=== PATIENT | male | born 1960 | race Caucasian/White ===

== ENCOUNTER 2024-05-16 13:18 | Inpatient (IN) | payer MEDICARE ==
[2024-05-16 13:40] LABS: Glucose,Whole Blood 215 mg/dL (70-110)
--- NOTE | 2024-05-16 13:56 | CT ---
EXAMINATION TYPE: CODE STROKE: CT brain wo contr CT DLP: 1158.6 mGycm, Automated exposure control for dose reduction was used. DATE OF EXAM: 05/16/2024 1:50 PM COMPARISON: None. CLINICAL INDICATION:Male, 63 years old with history of Neuro deficit, acute, stroke suspected, Code s troke. Left side weakness and facial droop. TECHNIQUE: Brain: Multiple axial CT images of the brain were obtained without IV contrast. . Coronal and sagitta l reformats reviewed. FINDINGS: Brain: Extra-axial spaces: No abnormal extra-axial fluid collections. Ventricular system: Within normal limits Cerebral parenchyma: No acute intraparenchymal hemorrhage or mass effect. The amezcua-white junction is well differentiated. Cerebellum: CSF fluid attenuating space within the posterior cranial fossa and midline likely represe nting a denisse cisterna magna versus arachnoid cyst. Mass effect: No evidence of midline shift. Intracranial vasculature: Atherosclerotic calcifications of the intracranial vessels. Soft tissues: Normal. Calvarium/osseous structures: No depressed skull fracture. Paranasal sinuses and mastoid air cells: Clear Visualized orbits: Orbital contents are intact. IMPRESSION: No acute intracranial process. [facility], , 05/16/2024 1:54 PM
[2024-05-16 14:11] LABS: Basophils # (A) 0.1 k/uL (0-0.2); Basophils % (A) 1 %; Eosinophils # (A) 0.2 k/uL (0-0.7); Eosinophils % (A) 1 %; HCT 46.3 % (39.0-53.0); HGB 15.5 gm/dL (13.0-17.5); Lymphocytes # (A) 2.9 k/uL (1.0-4.8); Lymphocytes % (A) 25 %; MCH 29.2 pg (25.0-35.0); MCHC 33.5 g/dL (31.0-37.0); MCV 87.3 fL (80.0-100.0); Mean Platelet Volume 7.4; Monocytes # (A) 0.6 k/uL (0-1.0); Monocytes % (A) 5 %; Neutrophils # (A) 7.8 k/uL (1.3-7.7); Neutrophils % (A) 67 %; Platelet Count 291 k/uL (150-450); RDW 13.1 % (11.5-15.5); WBC 11.7 k/uL (3.8-10.6)
--- NOTE | 2024-05-16 14:15 | XR ---
EXAMINATION TYPE: XR chest 2V DATE OF EXAM: 05/16/2024 2:09 PM COMPARISON: None. CLINICAL INDICATION: Male, 63 years old with history of altered mental status, TECHNIQUE: Frontal and lateral views of the chest are obtained. FINDINGS: There is no focal air space opacity, pleural effusion, or pneumothorax seen. The cardiac silhouette size is mildly enlarged. The osseous structures are intact. IMPRESSION: Mild cardiomegaly without acute pulmonary process. [facility], , 05/16/2024 2:12 PM
--- NOTE | 2024-05-16 14:20 | CT ---
EXAMINATION TYPE: CT angio head neck CT DLP: 679.9 mGycm, Automated exposure control for dose reduction was used. DATE OF EXAM: 05/16/2024 2:04 PM COMPARISON: CT brain of the same date. CLINICAL INDICATION:Male, 63 years old with history of Neuro deficit, acute, stroke suspected; PHH, C ode stroke. Left side weakness and facial droop. TECHNIQUE: Axially acquired helical CT angiogram of the head and neck was obtained with contrast util izing 65 cc of Isovue-370 administered intravenously. Axial images are supplemented with 3D reconstru ctions which were post-processed at an independent workstation. NASCET criteria used. FINDINGS: CTA HEAD: No evidence of acute intracranial hemorrhage, mass effect, or midline shift. The ventricles, sulci, a nd cisterns are unremarkable. The visualized portions of the internal carotid arteries, middle cerebral arteries, anterior cerebral arteries, and posterior cerebral arteries are patent. The bilateral A2 segments of the anterior cere bral arteries originate from the left A1 segment which is an anatomic variant. The basilar and vertebral arteries are patent. CTA NECK: Right Carotid System: The common carotid artery and external carotid artery are patent. The carotid bifurcation demonstrate s no evidence of hemodynamically significant stenosis. There is approximately 50% stenosis involving the proximal portion of the right internal carotid artery secondary to calcified and noncalcified latoya que. The remaining portions of the internal carotid artery demonstrate normal size without significan t narrowing. Left Carotid System: The common carotid artery and external carotid artery are patent. Minimal calcification identified wi thin the proximal left internal carotid artery. The carotid bifurcation demonstrates no evidence of h emodynamically significant stenosis. The remaining portions of the internal carotid artery demonstrat e normal size without significant narrowing. Vertebral arteries are patent without evidence hemodynamically significant stenosis. Minimal calcific ation of the V4 segment of the bilateral carotid arteries. There is a three-vessel aortic arch. The origins of the great vessels are patent. No evidence of hemo dynamically significant stenosis. Right upper lobe 3.6 mm pulmonary nodule (series 401, image 23). Mild multilevel degenerative changes of the cervical spine. IMPRESSION: 1. No evidence of dissection of the cervical internal carotid arteries or vertebral arteries. Approxi mately 50% stenosis involving the proximal right internal carotid artery secondary to calcified and n oncalcified plaque. No hemodynamically significant stenosis involving the left internal carotid arter y. 2. No evidence of high-grade stenosis or intracranial aneurysm. 3. Anatomic variant with the bilateral A2 segments of the anterior cerebral arteries originating from the A1 segment of the left anterior cerebral artery. 4. Right upper lobe 3.6 millimeter pulmonary nodule. In a low-risk patient, no follow-up is recommend ed. In a high-risk patient, consider optional CT chest in 12 months. [facility], , 05/16/2024 2:18 PM
[2024-05-16 14:23] LABS: ALT 30 U/L (4-49); AST 27 U/L (17-59); African American GFR (CKD) 85 (>60 ml/min/1.73 sqM); Albumin 4.5 g/dL (3.5-5.0); Alkaline Phosphatase 109 U/L (38-126); Anion Gap 11 mmol/L; Blood Urea Nitrogen 17 mg/dL (9-20); Calcium 10.3 mg/dL (8.4-10.2); Carbon Dioxide 29 mmol/L (22-30); Chloride 100 mmol/L (98-107); Creatine Kinase 154 U/L (55-170); Glucose 220 mg/dL (74-99); Non-African American GFR(CKD) 74 (>60 ml/min/1.73 sqM); Potassium 4.9 mmol/L (3.5-5.1); Sodium 140 mmol/L (137-145); Total Bilirubin 0.5 mg/dL (0.2-1.3)
[2024-05-16 14:42] LABS: INR 0.9 (<1.2); Partial Thromboplastin Time 24.2 sec (22.0-30.0); Prothrombin Time 10.3 sec (10.0-12.5)
[2024-05-16] MEDS: ATORVASTATIN 40 MG TAB PO STA (14:54)
[2024-05-16] MEDS: ASPIRIN 325 MG TAB PO STA (14:54)
--- NOTE | 2024-05-16 15:01 | ED ---
General Adult HPI - General Chief complaint: Neuro Symptoms/Deficit Stated complaint: Left side numbness/Facial drooping Time Seen by Provider: 05/16/24 13:30 Source: patient, family Mode of arrival: ambulatory Limitations: no limitations - History of Present Illness Initial comments: 63-year-old male with past medical history of diabetes, hypertension, hyperlipidemia who presents emergency department with left upper extremity numbness and left-sided facial droop. Patient states that 30 minutes prior to hospital arrival he had sudden onset of drooping to the left side of his face. He also had some tingling in his left arm and some difficulties with his speech. He immediately came into the hospital. He denies any weakness in his arm. No difficulties with strength in his leg. Patient denies history of previous symptoms in the past. He does not take any blood thinners. He denies any head injuries. No visual changes. No other alleviating, precipitating or modifying factors - Related Data Allergies Allergy/AdvReac Type Severity Reaction Status Date / Time Influenza Virus Vaccines Allergy Unknown Verified 05/16/24 13:33 ondansetron [From Zofran] Allergy Unknown Verified 05/16/24 13:33 Ebljffg-SKJ-UrH Reductase Allergy Unknown Verified 05/16/24 13:33 Inhibitor Review of Systems ROS Statement: Those systems with pertinent positive or pertinent negative responses have been documented in the HPI. ROS Other: All systems not noted in ROS Statement are negative. Past Medical History Past Medical History: Diabetes Mellitus, Hyperlipidemia, Hypertension Additional Past Surgical History / Comment(s): Right tibia, Past Psychological History: No Psychological Hx Reported Smoking Status: Never smoker Past Alcohol Use History: None Reported Past Drug Use History: None Reported General Exam Limitations: no limitations Course Vital Signs 05/16/24 05/16/24 05/16/24 13:23 13:52 14:55 Temperature 98.5 F Pulse Rate 106 H 108 H 101 H Respiratory 18 20 20 Rate Blood Pressure 205/99 224/114 186/93 O2 Sat by Pulse 98 98 95 Oximetry Medical Decision Making - Medical Decision Making Was pt. sent in by a medical professional or institution (, PA, TRUCK RENTAL CLERK, urgent care, hospital, or intermediate...) When possible be specific @ -[No] Did you speak to anyone other than the patient for history (EMS, parent, family, police, friend...)? What history was obtained from this source @ -[No] Did you review nursing and triage notes (agree or disagree)? Why? @ -[I reviewed and agree with nursing and triage notes] Were old charts reviewed (outside hosp., previous admission, EMS record, old EKG, old radiological studies, urgent care reports/EKG's, intermediate records)? Report findings @ -[No old charts were reviewed] Differential Diagnosis (chest pain, altered mental status, abdominal pain women, abdominal pain men, vaginal bleeding, weakness, fever, dyspnea, syncope, headache, dizziness, GI bleed, back pain, seizure, CVA, palpatations, mental health, musculoskeletal)? @ -[not applicable] EKG interpreted by me (3pts min.). @ -Yes and demonstrates sinus tachycardia with a rate of 106. WA interval 194. QRS 94. QTc of 388. No acute ST segment elevations or depressions X-rays interpreted by me (1pt min.). @ -[None done] CT interpreted by me (1pt min.). @ -[None done] U/S interpreted by me (1pt. min.). @ -[None done] What testing was considered but not performed or refused? (CT, X-rays, U/S, labs)? Why? @ -[None] What meds were considered but not given or refused? Why? @ -[None] Did you discuss the management of the patient with other professionals (professionals i.e. , PA, TRUCK RENTAL CLERK, lab, RT, psych nurse, social worker clinical, returned item clerk, teacher, facilities officer, correctional case manager)? Give summary @ -[No] Was smoking cessation discussed for >3mins.? @ -[No] Was critical care preformed (if so, how long)? @ -[No] Were there social determinants of health that impacted care today? How? (Homelessness, low income, unemployed, alcoholism, drug addiction, transportation, low edu. Level, literacy, decrease access to med. care, senior care, rehab)? @ -[No] Was there de-escalation of care discussed even if they declined (Discuss DNR or withdrawal of care, Hospice)? DNR status @ -[No] What co-morbidities impacted this encounter? (DM, HTN, Smoking, COPD, CAD, Cancer, CVA, ARF, Chemo, Hep., AIDS, mental health diagnosis, sleep apnea, morbid obesity)? @ -[None] Was patient admitted / discharged? Hospital course, mention meds given and route, prescriptions, significant lab abnormalities, going to OR and other pertinent info. @ -[hospital course] Undiagnosed new problem with uncertain prognosis? @ -[No] Drug Therapy requiring intensive monitoring for toxicity (Heparin, Nitro, Insulin, Cardizem)? @ -[No] Were any procedures done? @ -[No] Diagnosis/symptom? @ -[default] Acute, or Chronic, or Acute on Chronic? @ -[default] Uncomplicated (without systemic symptoms) or Complicated (systemic symptoms)? @ -[default] Side effects of treatment? @ -[No] Exacerbation, Progression, or Severe Exacerbation? @ -[No] Poses a threat to life or bodily function? How? (Chest pain, USA, IA, pneumonia, PE, COPD, DKA, ARF, appy, cholecystitis, CVA, Diverticulitis, Homicidal, Suicidal, threat to staff... and all critical care pts) @ -[No] - Lab Data Result diagrams: 05/16/24 13:42 05/16/24 13:42 Lab Results 05/16/24 05/16/24 05/16/24 Range/Units 13:39 13:42 13:42 WBC 11.7 H (3.8-10.6) k/uL RBC 5.30 (4.30-5.90) m/uL Hgb 15.5 (13.0-17.5) gm/dL Hct 46.3 (39.0-53.0) % MCV 87.3 (80.0-100.0) fL MCH 29.2 (25.0-35.0) pg MCHC 33.5 (31.0-37.0) g/dL RDW 13.1 (11.5-15.5) % Plt Count 291 (150-450) k/uL MPV 7.4 Neutrophils % 67 % Lymphocytes % 25 % Monocytes % 5 % Eosinophils % 1 % Basophils % 1 % Neutrophils # 7.8 H (1.3-7.7) k/uL Lymphocytes # 2.9 (1.0-4.8) k/uL Monocytes # 0.6 (0-1.0) k/uL Eosinophils # 0.2 (0-0.7) k/uL Basophils # 0.1 (0-0.2) k/uL PT 10.3 (10.0-12.5) sec INR 0.9 (<1.2) APTT 24.2 (22.0-30.0) sec Sodium (137-145) mmol/L Potassium (3.5-5.1) mmol/L Chloride (98-107) mmol/L Carbon Dioxide (22-30) mmol/L Anion Gap mmol/L BUN (9-20) mg/dL Creatinine (0.66-1.25) mg/dL Est GFR (CKD-EPI)AfAm (>60 ml/min/1.73 sqM) Est GFR (CKD-EPI)NonAf (>60 ml/min/1.73 sqM) Glucose (74-99) mg/dL POC Glucose (mg/dL) 215 H (70-110) mg/dL POC Glu Carpenter Supervisor [employer] Yarger Corby Calcium (8.4-10.2) mg/dL Total Bilirubin (0.2-1.3) mg/dL AST (17-59) U/L ALT (4-49) U/L Alkaline Phosphatase (38-126) U/L Creatine Kinase (55-170) U/L Troponin I (0.000-0.034) ng/mL Total Protein (6.3-8.2) g/dL Albumin (3.5-5.0) g/dL 05/16/24 05/16/24 Range/Units 13:42 13:42 WBC (3.8-10.6) k/uL RBC (4.30-5.90) m/uL Hgb (13.0-17.5) gm/dL Hct (39.0-53.0) % MCV (80.0-100.0) fL MCH (25.0-35.0) pg MCHC (31.0-37.0) g/dL RDW (11.5-15.5) % Plt Count (150-450) k/uL MPV Neutrophils % % Lymphocytes % % Monocytes % % Eosinophils % % Basophils % % Neutrophils # (1.3-7.7) k/uL Lymphocytes # (1.0-4.8) k/uL Monocytes # (0-1.0) k/uL Eosinophils # (0-0.7) k/uL Basophils # (0-0.2) k/uL PT (10.0-12.5) sec INR (<1.2) APTT (22.0-30.0) sec Sodium 140 (137-145) mmol/L Potassium 4.9 (3.5-5.1) mmol/L Chloride 100 (98-107) mmol/L Carbon Dioxide 29 (22-30) mmol/L Anion Gap 11 mmol/L BUN 17 (9-20) mg/dL Creatinine 1.06 (0.66-1.25) mg/dL Est GFR (CKD-EPI)AfAm 85 (>60 ml/min/1.73 sqM) Est GFR (CKD-EPI)NonAf 74 (>60 ml/min/1.73 sqM) Glucose 220 H (74-99) mg/dL POC Glucose (mg/dL) (70-110) mg/dL POC Glu Carpenter Supervisor [employer] Calcium 10.3 H (8.4-10.2) mg/dL Total Bilirubin 0.5 (0.2-1.3) mg/dL AST 27 (17-59) U/L ALT 30 (4-49) U/L Alkaline Phosphatase 109 (38-126) U/L Creatine Kinase 154 (55-170) U/L Troponin I <0.012 (0.000-0.034) ng/mL Total Protein 8.0 (6.3-8.2) g/dL Albumin 4.5 (3.5-5.0) g/dL Disposition Clinical Impression: Cerebrovascular accident (CVA), Left arm numbness, Facial droop Disposition: ADMITTED IP TO THIS [facility] Condition: Stable Is patient prescribed a controlled substance at d/c from ED?: No Referrals: Nonstaff,Physician [Primary Care Provider] - 1-2 days Time of Disposition: 15:01 Decision to Admit Reason: Admit from EC Decision Date: 05/16/24 Decision Time: 15:01
[2024-05-16] MEDS: TICAGRELOR 90 MG TAB PO SCH (21:19)
[2024-05-16 21:32] LABS: Glucose,Whole Blood 97 mg/dL (70-110)
[2024-05-17] MEDS ORDERED: DEXTROSE 50% SYRINGE 50 ML IVP PRN ×2 (05:34)
[2024-05-17] MEDS ORDERED: ONDANSETRON 4 MG/2 ML VIAL IVP PRN (05:35)
[2024-05-17 06:03] LABS: Glucose,Whole Blood 76 mg/dL (70-110)
[2024-05-17] MEDS: INSULIN ASPART (NovoLOG) 100 UNIT/ML VIAL SQ SCH (06:05)
[2024-05-17] MEDS: PANTOPRAZOLE 40 MG TABLET PO SCH (06:08)
[2024-05-17] MEDS: ATORVASTATIN 40 MG TAB PO SCH (09:32)
[2024-05-17] MEDS: LOSARTAN 50 MG TAB PO SCH (09:32)
--- NOTE | 2024-05-17 09:39 | P.GSCN ---
History of Present Illness Consult date: 05/17/24 Reason for Consult: carotid stenosis, CVA History of present illness: 63-year-old male with past medical history of diabetes, hypertension, hyperlipidemia who presented to the emergency department with left upper extremity numbness and left-sided facial droop which he states onset was sudden. He also had some difficulty with speech and difficulty moving his left arm. He was seen in the hospital and worked up for stroke and found to have stenosis of the right carotid artery on CTA. He states everything has since resolved except the proprioception of the left arm. He denies any fevers, chills, chest pain or shortness of breath. Review of Systems All systems: negative (what is mentioned in the PMH or HPI) Past Medical History Past Medical History: Diabetes Mellitus, Hyperlipidemia, Hypertension History of Any Multi-Drug Resistant Organisms: None Reported Past Surgical History: Tonsillectomy Additional Past Surgical History / Comment(s): Right tibfib srcew from fracture Past Psychological History: No Psychological Hx Reported Smoking Status: Never smoker Past Alcohol Use History: None Reported Past Drug Use History: None Reported Medications and Allergies Home Medications Medication Instructions Recorded Confirmed Type Losartan Potassium [Cozaar] 100 mg PO DAILY 05/16/24 05/16/24 History amLODIPine [Norvasc] 10 mg PO HS 05/16/24 05/16/24 History glipiZIDE [glipiZIDE ER] 10 mg PO DAILY 05/16/24 05/16/24 History metFORMIN HCL ER [Glucophage XR] 1,000 mg PO DAILY 05/16/24 05/16/24 History Allergies Allergy/AdvReac Type Severity Reaction Status Date / Time Influenza Virus Vaccines Allergy Unknown Verified 05/16/24 15:33 ondansetron [From Zofran] Allergy Unknown Verified 05/16/24 15:33 Ryaeysz-YUH-YiI Reductase Allergy Unknown Verified 05/16/24 15:33 Inhibitor Surgical - Exam Vital Signs Temp Pulse Resp BP Pulse Ox 98.5 F 106 H 18 205/99 98 05/16/24 13:23 05/16/24 13:23 05/16/24 13:23 05/16/24 13:23 05/16/24 13:23 Patient Seen Date: 05/17/24 Patient Seen Time: 09:00 - General well developed, well nourished, no distress - Eyes PERRL, normal ocular movement - ENT normal pinna, normal nares - Neck no masses - Respiratory normal expansion, normal respiratory effort - Cardiovascular Rhythm: regular - Abdomen Abdomen: soft, non tender - Neurologic left arm with pronator drift noted. - Psychiatric oriented to time, oriented to person, oriented to place, speech is normal normal strength bilaterally upper and lower extremities Palpable DP/PT/radial pulses bilaterally Results CTA neck- right carotid artery stenosis greater than 50% - Labs 05/16/24 13:42 05/16/24 13:42 Abnormal Lab Results - Last 24 Hours (Table) 05/16/24 05/16/24 05/16/24 Range/Units 13:39 13:42 13:42 WBC 11.7 H (3.8-10.6) k/uL Neutrophils # 7.8 H (1.3-7.7) k/uL Glucose 220 H (74-99) mg/dL POC Glucose (mg/dL) 215 H (70-110) mg/dL Calcium 10.3 H (8.4-10.2) mg/dL Diabetes panel 05/16/24 Range/Units 13:42 Sodium 140 (137-145) mmol/L Potassium 4.9 (3.5-5.1) mmol/L Chloride 100 (98-107) mmol/L Carbon Dioxide 29 (22-30) mmol/L BUN 17 (9-20) mg/dL Creatinine 1.06 (0.66-1.25) mg/dL Glucose 220 H (74-99) mg/dL Calcium 10.3 H (8.4-10.2) mg/dL AST 27 (17-59) U/L ALT 30 (4-49) U/L Alkaline Phosphatase 109 (38-126) U/L Total Protein 8.0 (6.3-8.2) g/dL Albumin 4.5 (3.5-5.0) g/dL Calcium panel 05/16/24 Range/Units 13:42 Calcium 10.3 H (8.4-10.2) mg/dL Albumin 4.5 (3.5-5.0) g/dL Pituitary panel 05/16/24 Range/Units 13:42 Sodium 140 (137-145) mmol/L Potassium 4.9 (3.5-5.1) mmol/L Chloride 100 (98-107) mmol/L Carbon Dioxide 29 (22-30) mmol/L BUN 17 (9-20) mg/dL Creatinine 1.06 (0.66-1.25) mg/dL Glucose 220 H (74-99) mg/dL Calcium 10.3 H (8.4-10.2) mg/dL Adrenal panel 05/16/24 Range/Units 13:42 Sodium 140 (137-145) mmol/L Potassium 4.9 (3.5-5.1) mmol/L Chloride 100 (98-107) mmol/L Carbon Dioxide 29 (22-30) mmol/L BUN 17 (9-20) mg/dL Creatinine 1.06 (0.66-1.25) mg/dL Glucose 220 H (74-99) mg/dL Calcium 10.3 H (8.4-10.2) mg/dL Total Bilirubin 0.5 (0.2-1.3) mg/dL AST 27 (17-59) U/L ALT 30 (4-49) U/L Alkaline Phosphatase 109 (38-126) U/L Total Protein 8.0 (6.3-8.2) g/dL Albumin 4.5 (3.5-5.0) g/dL Assessment and Plan Assessment: Acute CVA with left sided weakness Symptomatic right carotid artery stenosis Plan: Reviewed CTA independently which demonstrates calcific disease at the bifurcation and greater than 50% Will obtain carotid Doppler to evaluate plaque morphology Due to the symptoms and stenosis greater than 50% recommendation is for right carotid intervention within the next 2 weeks. Will await neurology recommendations as well. Thank you for the consultation
[2024-05-17] MEDS: ACETAMINOPHEN TAB 325 MG TAB PO PRN (09:43)
--- NOTE | 2024-05-17 10:59 | US ---
EXAMINATION TYPE: US carotid duplex BILAT DATE OF EXAM: 05/17/2024 COMPARISON: CTA: 05/16/24 CLINICAL INDICATION: Male, 63 years old with history of carotid stenosis; stenosis Additional History: .... TECHNIQUE: Grayscale, color Doppler and spectral Doppler evaluation of the bilateral carotid systems and vertebral arteries. Indirect Doppler criteria was utilized. FINDINGS: EXAM MEASUREMENTS: RIGHT: Peak Systolic Velocity (PSV) cm/sec ----- Right CCA: 76.0 ----- Right ICA: 116 ----- Right ECA: 122 ICA/CCA ratio: 1.5 RIGHT: End Diastole cm/sec ----- Right CCA: 16.6 ----- Right ICA: 37.5 ----- Right ECA: 12.1 LEFT: Peak Systolic Velocity (PSV) cm/sec ----- Left CCA: 103 ----- Left ICA: 87.1 ----- Left ECA: 156 ICA/CCA ratio: 0.85 LEFT: End Diastole cm/sec ----- Left CCA: 18.4 ----- Left ICA: 19.4 ----- Left ECA: 21.3 VERTEBRALS (direction of flow): Right Vertebral: Antegrade Left Vertebral: not seen Rhythm: Normal DISPOSAL MAN NOTES: plaque seen in bilateral bulbs. no elevated velocities Color Doppler imaging shows patency with blood flow throughout the carotid artery. Spectral waveforms are within normal limits. IMPRESSION: 1. Mild atheromatous plaque carotid bulbs without significant flow-limiting stenosis bilateral caroti d bifurcations. Criteria for Assigning % of Stenosis / Diameter reduction (Estimation based on the indirect measurements of the internal carotid artery velocities (ICA PSV). 1. Normal (no stenosis)=ICA PSV < 125 cm/s: ratio < 2.0: ICA EDV<40 cm/s. 2. Less than 50% stenosis=ICA PSV < 125 cm/s: ratio < 2.0: ICA EDV<40 cm/s. 3. 50 to 69% stenosis=ICA PSV of 125 to 230 cm/s: ration 2.0 ? 4.0: ICA EDV 40-100 cm/s. 4. Greater than 70% stenosis to near occlusion= ICA PSV > 230 cm/s: ratio > 4.0: ICA EDV > 100 cm/s. 5. Near occlusion= ICA PSV velocities may be low or undetectable: variable ratio and ICA EDV. 6. Total occlusion=unable to detect flow. [facility], , 05/17/2024 10:57 AM
[2024-05-17 12:05] LABS: Glucose,Whole Blood 126 mg/dL (70-110)
[2024-05-17 15:11] LABS: Chol/HDL Ratio 6.14 Ratio; HDL Cholesterol 45.1 mg/dL (40.00-60.00)
--- NOTE | 2024-05-17 15:11 | P.HPIM ---
History of Present Illness H&P Date: 05/17/24 Chief Complaint: Left arm numbness and facial droop Patient is a 63 year old male with past medical history pretension, diabetes melitis, hyperlipidemia presented to the ED with left-sided numbness and weakness. Patient's symptoms started yesterday around noon. He experienced slurring of speech along with left sided facial droop and left upper extremity numbness and weakness. The symptoms lasted for 2-3 minutes before resolution. Thirty minutes later he presented to the ER 30 for an evaluation. He reports feeling weakness in his left arm 3 times in the past couple of months but did not receive an evaluation at the time. Associated with that he endorses nausea. Currently he states that the weakness and numbness has significantly improved. He denies having a stroke or seizures in the past. He does have a family history of stroke. He denies ever having a heart attack or being diagnosed with atrial fibrillation in the past. Denies chest pain, shortness of breath. Additionally he mentions having blood in his bowel movements a year ago. He had a colonoscopy 10 years ago where they found some polyps and hemorrhoids and he is due to have another colonoscopy soon. Denies fever, chills, cough, palpitations, abdominal pain, nausea, vomiting, hematuria, dysuria, hematochezia, melena, headache, dizziness, lightheadedness. ED documentation reviewed. In the ED patient was treated with aspirin 325 mg, atorvastatin 80 mg, ticagrelor 90 mg. Vitals on admission T 98.5 F, VT 106 bpm, RR 18, BP 205/99, oxygen saturation 90% on room air EKG independently interpreted as sinus tachycardia, rate 106 bpm, QTc 388 ms Chest x-ray shows mild cardiomegaly without acute pulmonary process Brain CT shows no acute intracranial process CT angiography of head and neck shows 50% stenosis in the proximal right internal carotid artery secondary to calcified and noncalcified plaque, right upper lobe 3.6 mm pulmonary nodule Labs on admission show WBC 11.7, INR 0.9, sodium 140, creatinine 1.06, glucose 220, calcium 10.3, CK1 54 Troponin I <0.012 Carotid Doppler shows mild atheromatous plaque carotid bulbs without significant flow-limiting stenosis bilateral carotid bifurcations Review of systems: Pertinent positives and negatives as discussed in HPI, a complete review of sy stems was performed and all other systems are negative. Social history: Tobacco: Never smoker Alcohol: Denies use Recreational drugs: Denies use Travel: No recent travel history Sick contacts: None Physical examination: Vital signs reviewed General: nontoxic, no distress, appears at stated age Derm: warm, dry, intact Head: atraumatic, normocephalic, symmetric Eyes: EOMI, anicteric sclera Mouth: no lip lesion, mucus membranes moist Cardiovascular: S1 S2 reg, no murmur Lungs: CTA bilateral, no rhonchi, no rales, no accessory muscle use Abdominal: soft, non-tender to palpation Extremities: No cyanosis, clubbing, or pedal edema. Neuro: Alert, Oriented, Gross neurological examination did not reveal any focal deficits. Psych: well appearing, appropriate affect Assessment/Plan: Patient is a 63 year old male with past medical history pretension, diabetes melitis, hyperlipidemia presented to the ED with left-sided facial droop and left upper extremity numbness. He has been found to have 50% stenosis of the right internal carotid artery and is admitted for further neurology and vascular workup. Active: #. Acute CVA #. Symptomatic right carotid artery stenosis Brain CT shows no acute intracranial process CT angiography of head and neck shows 50% stenosis in the proximal right internal carotid artery secondary to calcified and noncalcified plaque, right upper lobe 3.6 mm pulmonary nodule Carotid Doppler shows mild atheromatous plaque carotid bulbs without significant flow-limiting stenosis bilateral carotid bifurcations continue atorvastatin 40 mg p.o. daily, ticagrelor 90 mg p.o. twice daily Obtain A1c and lipid panel Consult neurology Vascular surgery is following recommended right carotid intervention within the next 2 weeks due to the symptoms and stenosis greater than 50% #. Hypercalcemia Ca 10.3 Obtain PTH, vitamin D 25-hydroxy, vitamin D1 25 dihydroxy, ionized calcium Monitor BMP #. Reactive leukocytosis WBC 11.7 Monitor CBC Chronic: #. Hyperlipidemia #. Hypertension #. Dou-snlndoi-bruphtyfe diabetes mellitus Insulin sliding scale and ACHS blood glucose monitoring Continue amlodipine 10 mg p.o. at bedtime, losartan 100 mg p.o. daily F: None E: Replete as required N: Consistent carbohydrate diet DVT prophylaxis: Lovenox 40 mg SQ daily GI prophylaxis: Pantoprazole 40 mg PO daily The patient is admitted with an anticipated more than 2 midnight stay for evaluation of left sided numbness and weakness CODE STATUS: FULL CODE Discussed with: Patient Anticipated discharge place: Home Past Medical History Past Medical History: Diabetes Mellitus, Hyperlipidemia, Hypertension History of Any Multi-Drug Resistant Organisms: None Reported Past Surgical History: Tonsillectomy Additional Past Surgical History / Comment(s): Right tibfib srcew from fracture Past Psychological History: No Psychological Hx Reported Smoking Status: Never smoker Past Alcohol Use History: None Reported Past Drug Use History: None Reported Medications and Allergies Home Medications Medication Instructions Recorded Confirmed Type Losartan Potassium [Cozaar] 100 mg PO DAILY 05/16/24 05/16/24 History amLODIPine [Norvasc] 10 mg PO HS 05/16/24 05/16/24 History glipiZIDE [glipiZIDE ER] 10 mg PO DAILY 05/16/24 05/16/24 History metFORMIN HCL ER [Glucophage XR] 1,000 mg PO DAILY 05/16/24 05/16/24 History Allergies Allergy/AdvReac Type Severity Reaction Status Date / Time Influenza Virus Vaccines Allergy Unknown Verified 05/16/24 15:33 ondansetron [From Zofran] Allergy Unknown Verified 05/16/24 15:33 Qehtjel-LRX-CoS Reductase Allergy Unknown Verified 05/16/24 15:33 Inhibitor Physical Exam Vitals: Vital Signs Temp Pulse Pulse Resp BP BP Pulse Ox 05/17/24 04:00 74 16 162/76 98 05/17/24 00:00 81 16 176/85 98 05/16/24 21:00 98.1 F 97 16 170/87 97 05/16/24 20:01 90 16 166/85 98 05/16/24 18:42 85 20 154/77 97 05/16/24 17:40 98 20 163/93 95 05/16/24 16:00 98 20 183/91 98 05/16/24 14:55 101 H 20 186/93 95 05/16/24 13:52 108 H 20 224/114 98 05/16/24 13:23 98.5 F 106 H 18 205/99 98 Intake and Output 05/16/24 05/17/24 05/17/24 22:59 06:59 14:59 Intake Total 540 540 458 Balance 540 540 458 Intake: Oral 540 540 458 Other: Voiding Method Toilet Toilet # Voids 1 1 2 Weight 102.058 kg 102.9 kg Results CBC & Chem 7: 05/16/24 13:42 01/10/25 13:42 Labs: Abnormal Lab Results - Last 24 Hours (Table) 05/16/24 05/16/24 05/16/24 Range/Units 13:39 13:42 13:42 WBC 11.7 H (3.8-10.6) k/uL Neutrophils # 7.8 H (1.3-7.7) k/uL Glucose 220 H (74-99) mg/dL POC Glucose (mg/dL) 215 H (70-110) mg/dL Calcium 10.3 H (8.4-10.2) mg/dL Thrombosis Risk Factor Assmnt - Choose All That Apply Any of the Below Risk Factors Present?: Yes Each Factor Represents 1 point: Obesity (BMI >25) Other Risk Factors: Yes Each Risk Factor Represents 2 Points: Age 61-74 years Other congenital or acquired thrombophilia - If yes, enter type in comment: No Thrombosis Risk Factor Assessment Total Risk Factor Score: 3 Thrombosis Risk Factor Assessment Level: Moderate Risk
[2024-05-17 16:55] LABS: Glucose,Whole Blood 115 mg/dL (70-110)
[2024-05-17] MEDS: amLODIPine 10 MG TAB PO SCH (17:22)
[2024-05-17 20:42] LABS: Glucose,Whole Blood 132 mg/dL (70-110)
[2024-05-17] MEDS: ASPIRIN 81 MG PO SCH (20:58)
[2024-05-18 06:28] LABS: HCT 43.1 % (39.0-53.0); HGB 14.2 gm/dL (13.0-17.5); MCH 28.8 pg (25.0-35.0); MCHC 33.1 g/dL (31.0-37.0); MCV 86.9 fL (80.0-100.0); Mean Platelet Volume 7.5; Platelet Count 284 k/uL (150-450); RBC 4.95 m/uL (4.30-5.90); RDW 13.2 % (11.5-15.5); WBC 8.9 k/uL (3.8-10.6)
[2024-05-18 06:41] LABS: Ionized Calcium 4.9 mg/dL (4.5-5.3)
[2024-05-18 06:42] LABS: Glucose,Whole Blood 92 mg/dL (70-110)
[2024-05-18 06:54] LABS: African American GFR (CKD) >90 (>60 ml/min/1.73 sqM); Anion Gap 9 mmol/L; Blood Urea Nitrogen 15 mg/dL (9-20); Calcium 9.4 mg/dL (8.4-10.2); Carbon Dioxide 29 mmol/L (22-30); Chloride 103 mmol/L (98-107); Glucose 89 mg/dL (74-99); Non-African American GFR(CKD) >90 (>60 ml/min/1.73 sqM); Potassium 4.1 mmol/L (3.5-5.1); Sodium 141 mmol/L (137-145)
--- NOTE | 2024-05-18 08:02 | P.CNNES ---
History of Present Illness Consult date: 05/17/24 Requesting physician: iSl Horowitz Reason for Consult: left arm numbness, dysarthria, suspected cva History of Present Illness: Patient is a 63-year-old right-handed male with history of hypertension, diabetes came to the hospital yesterday at 1:18 PM for recurrent focal neurological symptoms. Patient states that yesterday he was at the kitchen table talking to his at 12:40 PM, when he said he lost ability to speak. He was slurring. Along with that he also noticed left facial droop, left facial numbness and weakness and numbness of the left arm. He was still able to walk. Symptoms lasted for about 3 minutes. At first his speech cleared, then facial droop cleared, he still has some numbness and tingling of the left arm. Patient's son is a sales project engineer, who did some neurological examination, and noticed that his left arm was incoordinated, not able to reach target. At present it is about 90% resolved. Patient states that he was able to walk to the car by himself. Patient states in the last 1 to 2 months, he would sitting down, not doing anything, picks up the left arm to grab something and it would suddenly drop. It happened 2-3 times, each lasting for about 1 to 2 minutes. Patient states the night before the last, he developed some numbness of the just corner of the mouth lasting for 1 minute. Vital signs on arrival blood pressure 205/99, which came up to 220/114 and then 186/93. Pulse rate 106, temperature 98.5. Blood test shows WBC 11.7 hemoglobin 15.5, platelets 291. PT PTT normal. Basic metabolic panel normal. Hepatic panel normal. Troponin negative, CK normal. CT head showed no acute intracranial process chest x-ray revealed mild cardiomegaly without acute pulmonary process. EKG shows sinus tachycardia Patient has history of hypertension, diabetes for 10 years, never smoked. Does not drink alcohol. Home medications include glipizide, metformin, losartan, amlodipine. Patient not on any antiplatelet medications. Patient states that today late afternoon he had transient numbness of the left hand and left corner of the mouth occurred 2 different times, was just for few moments. Review of Systems All pertinent positive and negative review of systems mentioned in the HPI. Otherwise unremarkable. Past Medical History Past Medical History: Diabetes Mellitus, Hyperlipidemia, Hypertension History of Any Multi-Drug Resistant Organisms: None Reported Past Surgical History: Tonsillectomy Additional Past Surgical History / Comment(s): Right tibfib srcew from fracture Past Psychological History: No Psychological Hx Reported Smoking Status: Never smoker Past Alcohol Use History: None Reported Past Drug Use History: None Reported Medications and Allergies Home Medications Medication Instructions Recorded Confirmed Type Losartan Potassium [Cozaar] 100 mg PO DAILY 05/16/24 05/16/24 History amLODIPine [Norvasc] 10 mg PO HS 05/16/24 05/16/24 History glipiZIDE [glipiZIDE ER] 10 mg PO DAILY 05/16/24 05/16/24 History metFORMIN HCL ER [Glucophage XR] 1,000 mg PO DAILY 05/16/24 05/16/24 History Allergies Allergy/AdvReac Type Severity Reaction Status Date / Time Influenza Virus Vaccines Allergy Unknown Verified 05/16/24 15:33 ondansetron [From Zofran] Allergy Unknown Verified 05/16/24 15:33 Udngxic-PTY-EgI Reductase Allergy Unknown Verified 05/16/24 15:33 Inhibitor Physical Examination - Vital Signs Vital Signs: Vital Signs Temp Pulse Resp BP Pulse Ox 05/17/24 16:15 98.2 F 55 L 17 179/87 96 05/17/24 14:00 87 17 05/17/24 11:54 98.2 F 87 17 176/94 96 05/17/24 08:10 98.6 F 84 17 158/92 98 05/17/24 08:00 84 17 05/17/24 04:00 74 16 162/76 98 05/17/24 00:00 81 16 176/85 98 05/16/24 21:00 98.1 F 97 16 170/87 97 Intake and Output 05/17/24 05/17/24 05/17/24 06:59 14:59 22:59 Intake Total 540 698 720 Balance 540 698 720 Intake: Oral 540 698 720 Other: Voiding Method Toilet Toilet # Voids 1 2 Weight 102.9 kg Patient is an elderly male, very pleasant, in no acute distress. Patient is alert awake oriented to time place and person. Speech and language functions are normal. Patient can name and repeat very well. No aphasia or dysarthria, although patient sometimes stutters, which is likely chronic. Attention, concentration and fund of knowledge is adequate. On cranial nerve examination, pupils are equal, round and reacting to light, visual vergara are full on confrontation, with no neglect on double simultaneous stimulation. Extraocular muscles are intact with no nystagmus. Face is symmetric, tongue protrudes to the midline. Palatal elevation and sensation normal, hearing and shoulder shrug normal, facial sensation normal. On muscle strength testing, there is left arm pronation with slight upward drift. Otherwise the strength is normal in arms and legs distally and proximally. Deep tendon reflexes are symmetric 1 at the biceps, 1 brachioradialis, 2 at the knees 1+ ankles and plantars downgoing. Sensory to touch is equal with no neglect on double simultaneous stimulation. Cerebellar function showed tremulousness for ucvcbb-at-errm testing on the right, but ataxia on the left. No ataxia for xizq-qx-olzi testing on either si de. Tone and bulk of muscles normal. Gait deferred.. On general examination, there is no carotid bruit or murmur, S1-S2 audible. Chest is clear on consultation. Abdomen is soft nontender. No organomegaly, bowel sounds present. Peripheral pulses are present. No peripheral edema. Results - Laboratory Findings CBC and BMP: 05/18/24 05:24 05/18/24 05:24 Abnormal Lab Findings: Abnormal Labs 05/16/24 05/16/24 05/16/24 13:39 13:42 13:42 WBC 11.7 H Neutrophils # 7.8 H Glucose 220 H POC Glucose (mg/dL) 215 H Calcium 10.3 H Triglycerides Cholesterol LDL Cholesterol Direct VLDL Cholesterol, Calc 05/16/24 05/17/24 05/17/24 13:42 12:03 16:54 WBC Neutrophils # Glucose POC Glucose (mg/dL) 126 H 115 H Calcium Triglycerides 485.00 H Cholesterol 277.00 H LDL Cholesterol Direct 184.00 H VLDL Cholesterol, Calc 97.00 H Assessment and Plan Assessment: * Recurrent TIA involving the right hemispheric region. Patient still has mild focal deficits, rule out CVA. * Right ICA stenosis, > 50% per CTA, but negative per ultrasound. Discordant findings. * Hypertension, uncontrolled * Diabetes * Hyperlipidemia Plan: MRI of the brain without contrast, evaluate for acute CVA 2-D echo with bubble study to rule out PFO CTA head and neck showed: No evidence of dissection of the cervical internal carotid arteries or vertebral arteries. Approximately 50% stenosis involving the proximal right ICA, secondary to calcified and noncalcified plaque. No hemodynamically significant stenosis involving the left ICA. No evidence of high-grade stenosis or intracranial aneurysm. Right upper lobe 3.6 mm pulmonary nodule. IM to address the pulmonary nodule. Carotid Doppler, revealed mild atheromatous plaque carotid bulbs without significant flow-limiting stenosis bilateral carotid bifurcations. Antegrade flow in right vertebral artery. Left vertebral artery not seen. Patient has recurrent symptoms, all involving the right hemispheric region with left-sided symptomatology. Suspect symptomatic right ICA stenosis, although moderate in degree noted in the CTA. Discordant findings with the ultrasound. Vascular surgery on board. Patient was started on Brilinta, however patient still has some transient focal symptoms on the left side today as well. We will start aspirin 81 mg daily with Brilinta. Fasting a.m. lipid panel cholesterol 277, LDL 184, HDL 95, triglycerides 485. Patient started on Lipitor 40 mg daily. Hemoglobin A1c Permissive hypertension for next 24-48 hours Patient was not taking any antiplatelet medication. Patient started on aspirin and Brilinta. Neuro checks every 2 hours Telemetry monitoring rule out any arrhythmia PT, OT, speech therapy DVT prophylaxis: Lovenox 40 mg subcu daily Neurology will continue to follow. Thank you for the consult.
[2024-05-18] MEDS: ENOXAPARIN 40 MG/0.4 ML SYRINGE SQ SCH (08:26)
[2024-05-18 11:39] LABS: Glucose,Whole Blood 102 mg/dL (70-110)
[2024-05-18 16:34] LABS: Glucose,Whole Blood 97 mg/dL (70-110)
[2024-05-18 20:01] LABS: Glucose,Whole Blood 182 mg/dL (70-110)
[2024-05-19 05:05] LABS: HCT 41.4 % (39.0-53.0); HGB 14.1 gm/dL (13.0-17.5); MCH 29.1 pg (25.0-35.0); MCHC 34.2 g/dL (31.0-37.0); MCV 85.3 fL (80.0-100.0); Mean Platelet Volume 7.7; Platelet Count 256 k/uL (150-450); RBC 4.85 m/uL (4.30-5.90); RDW 13.5 % (11.5-15.5); WBC 9.6 k/uL (3.8-10.6)
[2024-05-19 05:31] LABS: African American GFR (CKD) >90 (>60 ml/min/1.73 sqM); Anion Gap 6 mmol/L; Blood Urea Nitrogen 15 mg/dL (9-20); Calcium 9.3 mg/dL (8.4-10.2); Carbon Dioxide 32 mmol/L (22-30); Chloride 103 mmol/L (98-107); Glucose 103 mg/dL (74-99); Non-African American GFR(CKD) 85 (>60 ml/min/1.73 sqM); Potassium 4.5 mmol/L (3.5-5.1); Sodium 141 mmol/L (137-145)
[2024-05-19 06:14] LABS: Glucose,Whole Blood 107 mg/dL (70-110)
--- NOTE | 2024-05-19 10:30 | CA ---
Transthoracic Echo Report Name: Jose Campos Age: 63 Gender: M : 1960 Exam Date: 05/19/2024 08:34 Exam Location: [facility] Ht (in): 69 Wt (lb): 226 Ordering Physician: Mike Arellano MD Attending/Referring Phys: Patent Litigation Associate Neelam Whiteside RDCS Procedure CPT: Indications: recurrent TIA Cardiac Hx: Technical Quality: Fair Contrast 1: Total Dose (mL): Contrast 2: Total Dose (mL): MEASUREMENTS (Male / Female) Normal Values 2D ECHO LV Diastolic Diameter PLAX 3.8 cm 4.2 - 5.9 / 3.9 - 5.3 cm LV Systolic Diameter PLAX 2.5 cm IVS Diastolic Thickness 1.0 cm 0.6 - 1.0 / 0.6 - 0.9 cm LVPW Diastolic Thickness 1.4 cm 0.6 - 1.0 / 0.6 - 0.9 cm LV Relative Wall Thickness 0.6 LVOT Diameter 2.2 cm LV Diastolic Volume MOD BP 116.9 cm??? 67 - 155 / 56 - 104 cm??? LV Systolic Volume MOD BP 50.6 cm??? 22 - 58 / 19 - 49 cm??? LV Ejection Fraction MOD BP 56.7 % >= 55 % LV Cardiac Index MOD BP 2365.6 cm???/min???m??? LV Diastolic Volume MOD 4C 117.6 cm??? LV Systolic Volume MOD 4C 51.5 cm??? LV Ejection Fraction MOD 4C 56.2 % LV Cardiac Index MOD 4C 2361.0 cm???/min???m??? LV Diastolic Length 4C 8.9 cm LV Systolic Length 4C 8.0 cm LV Diastolic Volume MOD 2C 116.2 cm??? LV Systolic Volume MOD 2C 49.3 cm??? LV Ejection Fraction MOD 2C 57.6 % LV Cardiac Index MOD 2C 2390.7 cm???/min???m??? LV Diastolic Length 2C 8.9 cm LV Systolic Length 2C 7.8 cm LA Volume 59.6 cm??? 18 - 58 / 22 - 52 cm??? LA Volume Index 26.3 cm???/m??? 16 - 28 cm???/m??? DOPPLER AV Peak Velocity 196.4 cm/s AV Peak Gradient 15.4 mmHg AV Mean Velocity 136.3 cm/s AV Mean Gradient 8.2 mmHg AV Velocity Time Integral 37.9 cm LVOT Peak Velocity 130.8 cm/s LVOT Peak Gradient 6.8 mmHg LVOT Velocity Time Integral 24.8 cm LVOT Stroke Volume 91.6 cm??? LVOT Stroke Volume Index 42.1 ml/m??? LVOT Cardiac Index 3270.4 cm???/min???m??? AV Area Cont Eq vti 2.4 cm??? AV Area Cont Eq pk 2.5 cm??? MV Area PHT 3.2 cm??? Mitral E Point Velocity 75.1 cm/s Mitral A Point Velocity 111.6 cm/s Mitral E to A Ratio 0.7 MV Deceleration Time 240.4 ms PV Peak Velocity 83.5 cm/s PV Peak Gradient 2.8 mmHg FINDINGS Left Ventricle Left ventricular ejection fraction is estimated at 55-60 %. Left ventricular cavity size normal. Left ventricular wall thickness normal. No obvious regional wall motion abnormalities. Right Ventricle Normal right ventricular size. Right Atrium Normal right atrial size. Left Atrium Mildly increased left atrial volume. Mildly increased left atrial area. Mitral Valve Structurally normal mitral valve. No evidence for mitral valve prolapse. No mitral stenosis. Mild mitral regurgitation.mitral annular calcification. Aortic Valve Trileaflet aortic valve. Focal thickening of the aortic valve cusps. No aortic stenosis. No aortic regurgitation. Tricuspid Valve Structurally normal tricuspid valve. No tricuspid stenosis. Mild tricuspid regurgitation. Pulmonic Valve Pulmonic valve not well visualized. No pulmonic stenosis. Trace pulmonic regurgitation. Pericardium No pericardial effusion. Aorta Normal size aortic root and proximal ascending aorta. CONCLUSIONS 1. Normal left ventricular size and systolic function 2. Mild mitral and tricuspid regurgitation 3. No evidence of shunting by contrast bubble study Previewed by: Dr. Nehal De Paz MD (Electronically Signed) Final Date: 19 May 2024 10:29
[2024-05-19 11:28] LABS: Glucose,Whole Blood 131 mg/dL (70-110)
--- NOTE | 2024-05-19 12:48 | MR ---
EXAMINATION TYPE: MR brain wo con DATE OF EXAM: 05/19/2024 12:41 PM COMPARISON: 05/16/2024. CLINICAL INDICATION: Male, 63 years old with history of stroke/tia; PHH, EPISODE OF LEFT FACIAL DROOP ING, SLURRED SPEECH, AND LEFT ARM WEAKNESS TECHNIQUE: Multi planar, multi sequence imaging was performed through the brain including: T1, T2, In version recovery, Diffusion weighted imaging, and gradient echo imaging. No gadolinium was given. FINDINGS: Scattered foci of restricted diffusion in the right MCA territory. Predominantly along the cortex and subcortical white matter. The amezcua-white junctions, ventricular system, basal cisterns appear unremarkable. Scattered foci of high T2 signal intensity are seen within the periventricular white matter. Midline structures show n o abnormality. The susceptibility weighted images do not reveal any evidence for micro-hemorrhage. The bone marrow signal is within normal limits. Paranasal sinuses and mastoid air cells: No significant paranasal sinus disease. Visualized orbits: Orbital contents are intact. IMPRESSION: 1. Acute/subacute CVA involving the right MCA territory cortex and subcortical white matter.. 2. Nonspecific white matter changes, likely secondary to small vessel ischemic disease. [facility], , 05/19/2024 12:45 PM
--- NOTE | 2024-05-19 14:39 | P.PN ---
Subjective Progress Note Date: 05/19/24 Principal diagnosis: Carotid stenosis Patient seen and examined today as a follow-up. He states all of his symptoms have resolved. He has not had any new focal deficits. He is scheduled for MRI today. Objective - Vital Signs Vital signs: Vital Signs Temp 97.7 F 05/19/24 07:35 Pulse 87 05/19/24 07:35 Resp 16 05/19/24 07:35 BP 153/78 05/19/24 07:35 Pulse Ox 99 05/19/24 07:35 FiO2 Intake & Output 05/18/24 05/19/24 05/19/24 18:59 06:59 18:59 Intake Total 562 Balance 562 Weight 102.3 kg Intake: Oral 562 Other: Voiding Method Toilet Toilet Toilet # Voids 2 2 1 # Bowel Movements 1 - Exam General appearance: The patient is alert, oriented, appears in no acute distress. HET: Head is normocephalic and atraumatic. Pupils are equal and reactive. Neck: Supple. Heart: Regular. Lungs: Equal expansion, normal respiratory effort. Abdomen: Soft, nontender, nondistended. Extremities: Normal skin color and turgor. Neurological: No focal deficits. Strength and sensation are grossly intact. - Labs CBC & Chem 7: 05/19/24 04:26 05/19/24 04:26 Labs: Abnormal Lab Results - Last 24 Hours (Table) 05/18/24 05/19/24 Range/Units 20:00 04:26 Carbon Dioxide 32 H (22-30) mmol/L Glucose 103 H (74-99) mg/dL POC Glucose (mg/dL) 182 H (70-110) mg/dL Assessment and Plan Assessment: 1. Symptomatic right ICA stenosis 2. Acute/subacute CVA involving the right MCA territory cortex and subcortical white matter with left-sided weakness, now resolved Plan: 1. Continue Brilinta, aspirin and statin 2. Case management to check into cost of Brilinta 3. Recommend outpatient follow-up and carotid intervention within the next 2 weeks 4. Patient is cleared for discharge by vascular surgery if cleared by neurology for outpatient intervention Thank you for this consultation, we will continue to follow. The impression and plan of care has been dictated as directed. Dr. Heart I performed a history and examination of this patient, discussed the same with the dictator. I agree with the dictator's note ,documented as a scribe. Any additional findings or plans will be noted.
[2024-05-19 15:08] VITALS: BP 131/72; PULSE 78; RESP 20; TEMP 97.8
--- NOTE | 2024-05-19 16:01 | P.PN ---
Subjective Progress Note Date: 05/19/24 I am seeing the patient for the first time during this admission. Please refer to Dr. Arellano's notes for further details. Seems the patient presents because of speech difficulty, left facial droop dysarthria left arm weakness and still weakness and numbness. Patient states that is back to baseline. He states he has underlying history of stuttering at baseline but feels back to baseline. Denies any new focal deficit. MRI of the brain reveals a stroke over the right hemisphere. It seems that he has carotid stenosis and vascular surgery is on board. Objective - Vital Signs Vital signs: Vital Signs Temp 97.8 F 05/19/24 15:07 Pulse 78 05/19/24 15:07 Resp 20 05/19/24 15:07 BP 131/72 05/19/24 15:07 Pulse Ox 99 05/19/24 15:07 FiO2 Intake & Output 05/18/24 05/19/24 05/19/24 18:59 06:59 18:59 Intake Total 562 Balance 562 Weight 102.3 kg Intake: Oral 562 Other: Voiding Method Toilet Toilet Toilet # Voids 2 2 1 # Bowel Movements 1 - Exam General: Patient is sitting up in a chair and is not in acute distress Neuro The patient is awake alert oriented to self place and time. Is following simple commands. No aphasia no neglect. The patient does have stuttering and he states that this is baseline. No facial weakness. No dysarthria Motor the strength is 5 out of 5 throughout. - Labs CBC & Chem 7: 05/19/24 04:26 05/19/24 04:26 Labs: Abnormal Lab Results - Last 24 Hours (Table) 05/18/24 05/19/24 05/19/24 Range/Units 20:00 04:26 11:26 Carbon Dioxide 32 H (22-30) mmol/L Glucose 103 H (74-99) mg/dL POC Glucose (mg/dL) 182 H 131 H (70-110) mg/dL Assessment and Plan Assessment: * Acute ischemic stroke over the right MCA territory. Patient had speech difficulty left arm weakness facial weakness and feels symptoms are drastically improved and now resolved. Etiology is probable symptomatic right ICA. Right a stenosis of about 50%. * Right ICA stenosis, > 50% per CTA, but negative per ultrasound. Discordant findings. * Hypertension, uncontrolled * Diabetes * Hyperlipidemia Plan: MRI of the brain: Ordered as acute/subacute CVA involving the right MCA territory cortex and subcortical white matter. 2-D echo with bubble stud: Normal left ventricular size systolic function. Mild mitral and tricuspid regurgitation. No evidence of shunting by contrast bubble study CTA head and neck showed: No evidence of dissection of the cervical internal carotid arteries or vertebral arteries. Approximately 50% stenosis involving the proximal right ICA, secondary to calcified and noncalcified plaque. No hemodynamically significant stenosis involving the left ICA. No evidence of high-grade stenosis or intracranial aneurysm. Right upper lobe 3.6 mm pulmonary nodule. IM to address the pulmonary nodule. Carotid Doppler, revealed mild atheromatous plaque carotid bulbs without significant flow-limiting stenosis bilateral carotid bifurcations. Antegrade flow in right vertebral artery. Left vertebral artery not seen. Patient has recurrent symptoms, all involving the right hemispheric region with left-sided symptomatology. Suspect symptomatic right ICA stenosis, although moderate in degree noted in the CTA. Discordant findings with the ultrasound. Vascular surgery on board. We will start aspirin 81 mg daily with Brilinta. For the long-term use of dual antiplatelet to his vascular surgeon as well as neurologist as an outpatient Fasting a.m. lipid panel cholesterol 277, LDL 184, HDL 95, triglycerides 485. Patient started on Lipitor 40 mg daily. Hemoglobin A1c: 6.3 Neuro checks Telemetry monitoring rule out any arrhythmia. Recommend a 30-day event monitor PT, OT, speech therapy DVT prophylaxis: Lovenox 40 mg subcu daily Discharge recommend the patient to follow-up with a neurologist as an outpatient within 2 to 3 weeks. Plan discussed with the patient and primary team nurse practitioner Otherwise there is no further neurological workup. Will sign off. Please reconsult if needed peer Time with Patient: Less than 30
--- NOTE | 2024-05-21 21:47 | P.DS ---
Providers Date of admission: 05/16/24 15:09 Attending physician: Bob Lau MD Consults: 05/16/24 15:03 Consult Physician Urgent Consulting Provider: Mike Arellano Consult Reason/Comments: left arm numbness, dysarthria, suspected cva Do you want consulting provider notified?: Yes 05/16/24 15:05 Consult Physician Urgent Consulting Provider: Josué Bray Consult Reason/Comments: carotid stenosis, suspected cva Do you want consulting provider notified?: Yes Primary care physician: Physician Nonstaff Hospital Course: Final Diagnosis Acute ischemic stroke over right MCA territory likely from symptomatic right ICA stenosis Speech difficulty, left facial droop dysarthria left arm weakness and still weakness and numbness symptomatic right carotid artery stenosis Hypercalcemia Reactive leukocytosis Hyperlipidemia Hypertension Diabetes mellitus type 2 right upper lobe 3.6 mm pulmonary nodule. Discharge Disposition Patient is stable for discharge home. Neurology did recommend a 30 day event m onitor on discharge to rule out underlying cardiac arrhythmia. This will need to be addressed at the primary care office on follow. Patient to also follow up for the pulmonary nodule. Vascular surgery has an appt made with Dr Bray on May 27. Patient given information for neurology follow up recommending 2 to 3 weeks. Continue aspirin and brilinta therapy as well as statin therapy. Hospital Course Patient is a 63 year old male with past medical history pretension, diabetes mellitus, hyperlipidemia, who presented to the ED with left-sided numbness and weakness. Patient's symptoms started yesterday around noon. He experienced slurring of speech along with left sided facial droop and left upper extremity numbness and weakness. The symptoms lasted for 2-3 minutes before resolution. T hirty minutes later he presented to the ER 30 for an evaluation. He reports feeling weakness in his left arm 3 times in the past couple of months but did not receive an evaluation at the time. Associated with that he endorses nausea. Currently he states that the weakness and numbness has significantly improved. He denies having a stroke or seizures in the past. He does have a family history of stroke. He denies ever having a heart attack or being diagnosed with atrial fibrillation in the past. Denies chest pain, shortness of breath. Additionally he mentions having blood in his bowel movements a year ago. He had a colonoscopy 10 years ago where they found some polyps and hemorrhoids and he is due to have another colonoscopy soon. Denies fever, chills, cough, palpitations, abdominal pain, nausea, vomiting, hematuria, dysuria, hematochezia, melena, headache, dizziness, lightheadedness. ED documentation reviewed. In the ED patient was treated with aspirin 325 mg, atorvastatin 80 mg, ticagrelor [address] shows no acute intracranial process. CT angiography of head and neck shows 50% stenosis in the proximal right internal carotid artery secondary to calcified and noncalcified plaque, right upper lobe 3.6 mm pulmonary nodule. Troponin level negative. Carotid Doppler shows mild atheromatous plaque carotid bulbs without significant flow-limiting stenosis bilateral carotid bifurcations. Admitted with neurology and vascular surgery work up. MRI of the brain: Ordered as acute/subacute CVA involving the right MCA territory cortex and subcortical white matter. 2-D echo with bubble study: Normal left ventricular size systolic function. Mild mitral and tricuspid regurgitation. No evidence of shunting by contrast bubble study. Fasting a.m. lipid panel cholesterol 277, LDL 184, HDL 95, triglycerides 485. Patient started on Lipitor 40 mg daily. Patient will continue aspirin and brilinta therapy and will need close follow up with neurology and vascular on discharge. At the time of discharge all patients neurological symptoms have resolved. Please see medication reconciliation for a list of current medications. Thank you for allowing us to participate in the care of this patient. The impression and plan of care has been dictated by Niecy Fisher, Nurse Practitioner as directed. Dr. Lester MD I have performed a history and physical examination and medical decision making of this patient, discussed the same with the dictator, and agree with the dictators assessment and plan as written, documented as a scribe. Based on total visit time, I have performed more than 50% of this visit. Patient Condition at Discharge: Stable Plan - Discharge Summary Discharge Rx Participant: No New Discharge Prescriptions: New Ticagrelor [Brilinta] 90 mg PO BID 30 Days #60 tab Atorvastatin [Lipitor] 40 mg PO DAILY #30 tab Aspirin 81 mg PO DAILY #30 tab Pantoprazole [Protonix] 40 mg PO AC-BRKFST #30 tab Continue amLODIPine [Norvasc] 10 mg PO HS Losartan Potassium [Cozaar] 100 mg PO DAILY metFORMIN HCL ER [Glucophage XR] 1,000 mg PO DAILY glipiZIDE [glipiZIDE ER] 10 mg PO DAILY Discharge Medication List Losartan Potassium [Cozaar] 100 mg PO DAILY 05/16/24 [History] amLODIPine [Norvasc] 10 mg PO HS 05/16/24 [History] glipiZIDE [glipiZIDE ER] 10 mg PO DAILY 05/16/24 [History] metFORMIN HCL ER [Glucophage XR] 1,000 mg PO DAILY 05/16/24 [History] Aspirin 81 mg PO DAILY #30 tab 05/19/24 [Rx] Atorvastatin [Lipitor] 40 mg PO DAILY #30 tab 05/19/24 [Rx] Pantoprazole [Protonix] 40 mg PO AC-BRKFST #30 tab 05/19/24 [Rx] Ticagrelor [Brilinta] 90 mg PO BID 30 Days #60 tab 05/19/24 [Rx] Follow up Appointment(s)/Referral(s): Brandyn Godoy MD [STAFF PHYSICIAN] - 1-2 Days (Option for primary care provider. Please either follow up with your primary care provider in [place] or establish with a primary care provider (see list provided) JEFFY upon discharge as discussed.) Josué Bray DO [STAFF PHYSICIAN] - 05/27/24 12:30 pm Reynaldo Sanchez MD [Medical Doctor] - 1 Week (Neurology option for follow up.) Rico,Physician [Primary Care Provider] - 1-2 days (Please either follow up with your primary care provider in [place] or establish with a primary care provider (see list provided) JEFFY upon discharge as discussed.) Hernan Burnett DO [STAFF PHYSICIAN] - 1 Week (Neurology option for follow up.) Patient Instructions/Handouts: Ischemic Stroke (DC) Discharge/Stand Alone Forms: Area PCPs Discharge Disposition: HOME SELF-CARE
== END 2024-05-19 17:25 | disposition home or self-care (01) | DRG 65 ==
LOC: EC 13:18 → 3SCARD 15:09
PROVIDERS: ADMIT Internal Medicine; ATTEND Internal Medicine
DX: I63.511 Cerebral infarction due to unspecified occlusion or stenosis of right middle cerebral artery (principal); G81.94 Hemiplegia, unspecified affecting left nondominant side; R29.810 Facial weakness; I65.21 Occlusion and stenosis of right carotid artery; E11.65 Type 2 diabetes mellitus with hyperglycemia; I10 Essential (primary) hypertension; E78.5 Hyperlipidemia, unspecified; E83.52 Hypercalcemia; D72.829 Elevated white blood cell count, unspecified; I08.1 Rheumatic disorders of both mitral and tricuspid valves; Z88.7 Allergy status to serum and vaccine; Z88.8 Allergy status to other drugs, medicaments and biological substances; Z79.84 Long term (current) use of oral hypoglycemic drugs; Z79.899 Other long term (current) drug therapy; Z82.3 Family history of stroke
CPT/HCPCS: 36415; 70450; 70496; 70498; 70551; 71046; 80048; 80053; 80061; 82306; 82330; 82550; 82652; 83036; 83721; 83970; 84443; 84484; 85025; 85027; 85610; 85730; 93005; 93306; 93880; 99285

== ENCOUNTER 2024-12-02 06:46 | Day surgery (SDC) | payer MEDICARE ==
[2024-12-02 07:29] VITALS: RESP 16; TEMP 97.3
[2024-12-02] MEDS: LACTATED RINGERS 1,000 ML IV SCH (07:30)
[2024-12-02] MEDS: IV FLUID CONTINUATION 1,000 ML IV ONE (07:31)
[2024-12-02] MEDS: LIDOCAINE 1% (10MG/ML) FOR IV START INTRADERMA STA (07:31)
[2024-12-02 07:48] LABS: Glucose,Whole Blood 147 mg/dL (70-110)
[2024-12-02] MEDS ORDERED: PROPOFOL 10 MG/ML 20 ML VIAL IV ONE (08:11)
[2024-12-02] MEDS ORDERED: LIDOCAINE 1% INJ 10MG/ML (20 ML MDV) ONE (08:11)
--- NOTE | 2024-12-02 08:36 | P.PCN ---
Date of Procedure: 12/02/24 Procedure(s) Performed: Brief history: Patient is a pleasant 64-year-old white male scheduled for an elective upper endoscopy as well as colonoscopy as a part of evaluation of GERD and screening for colon cancer/positive Cologuard Procedure performed: Esophagogastroduodenoscopy with biopsy Colonoscopy with snare polypectomy Preoperative diagnosis: GERD Screening for colon cancer/positive Cologuard Anesthesia: MAC Procedure: After informed consent was obtained from the patient was brought into the endoscopy unit and IV sedation was administered by anesthesia under continuous monitoring. Initially upper endoscopy was done. The Olympus GF 160 video endoscope was inserted inserted into the mouth and esophagus intubated without any difficulty and was gradually advanced into the stomach and duodenum and carefully examined. The bulb and second part of the duodenum appeared normal. The scope was then withdrawn into the stomach adequately insufflated with air and upon careful examination the antrum and body, cardia and fundus appeared normal. The scope was then withdrawn into the esophagus. Small hiatal hernia noted. Small hiatal hernia noted. The GE junction was located at 40 cm to the incisors. There was a 5 mm tongues of Webster's appearing mucosa proximal to the GE junction that was biopsied. There was no erosions or ulcerations. Rest of the esophagus appeared normal. Patient tolerated the procedure well. At this time the patient continued to remain sedation. Initial digital rectal examination was normal. Olympus CF 160 video colonoscope was then inserted into the rectum and gradually advanced to the cecum without any difficulty. Careful examination was performed as the scope was gradually being withdrawn. The prep was excellent. The cecum, ascending colon, appeared normal. The hepatic flexure there were 2 polyps measuring 4 mm and 5 mm in size removed by cold snare polypectomy. Rest of the transverse colon, descending colon, sigmoid colon and rectum appeared normal. Retroflexion was performed in the rectum and small internal hemorrhoid were noted. Patient tolerated the procedure well. Impression: 1. Upper endoscopy revealed small hiatal hernia and short segment Webster's esophagus 2. Colonoscopy revealed 4 mm and 5 mm hepatic rectal polyp status post cold snare polypectomy and small internal hemorrhoids Recommendations: Findings of this examination were discussed with the patient as well as his family. He was advised to follow the biopsy results. Continue with Protonix 40 mg daily. He was advised to follow-up with the biopsy results. If the biopsy of his adenoma, recommended repeat colonoscopy in 5 years.
[2024-12-02 08:57] VITALS: BP 109/70; PULSE 74
== END 2024-12-02 09:14 | disposition home or self-care (01) ==
LOC: ORWHC2ENDO 06:46
PROVIDERS: ATTEND Internal Medicine Gastroenterology
DX: Z12.11 Encounter for screening for malignant neoplasm of colon (principal); D12.3 Benign neoplasm of transverse colon; K64.8 Other hemorrhoids; K22.70 Barrett's esophagus without dysplasia; K21.00 Gastro-esophageal reflux disease with esophagitis, without bleeding; K44.9 Diaphragmatic hernia without obstruction or gangrene; I10 Essential (primary) hypertension; E11.9 Type 2 diabetes mellitus without complications; E78.5 Hyperlipidemia, unspecified; G47.33 Obstructive sleep apnea (adult) (pediatric); Z79.02 Long term (current) use of antithrombotics/antiplatelets; Z79.84 Long term (current) use of oral hypoglycemic drugs; Z79.899 Other long term (current) drug therapy; Z86.73 Personal history of transient ischemic attack (TIA), and cerebral infarction without residual deficits; Z88.7 Allergy status to serum and vaccine; Z88.8 Allergy status to other drugs, medicaments and biological substances
CPT/HCPCS: 88305; 88342; 45385; 43239; J2003; J2704